=== PATIENT | male | born 1985 | race Caucasian/White ===

== ENCOUNTER 2017-06-12 11:42 | Emergency (ER) | payer SELFPAY ==
[2017-06-12 11:53] VITALS: BP 119/81; PULSE 109; RESP 17; TEMP 99.8; O2SAT 98
--- NOTE | 2017-06-12 13:14 | C.PDOC ---
History Of Present Illness Dax Andrade is a 31 year old female who presents to the emergency department complaining of fever, chills, sore throat, and minimal cough for the last 3 days. Patient reports has the same symptoms, and he flew from [place] yesterday. Patient states no other sick contacts. He is taking Motrin 400mg occasionally with improvement. No further medical complaints. PMD: None provided. Time Seen by Provider: 06/12/17 13:01 Chief Complaint (Nursing): Flu-like Symptoms History Per: Patient History/Exam Limitations: no limitations Onset/Duration Of Symptoms: Days (x3) Associated Symptoms: Fever, Chills, Sore Throat, Cough (minimal) Recent travel outside of the [place]: Yes (flew from [place] yesterday) Past Medical History Reviewed: Historical Data, Nursing Documentation, Vital Signs Vital Signs: Last Vital Signs Temp 99.8 F H 06/12/17 11:49 Pulse 109 H 06/12/17 11:49 Resp 17 06/12/17 11:49 BP 119/81 06/12/17 11:49 Pulse Ox 98 06/12/17 13:14 Surgical History: Appendectomy - [facility] Procedures LAPAROSCOP APPENDECTOMY (01/07/14) Family History: States: Unknown Family Hx - Social History Hx Tobacco Use: Yes Hx Alcohol Use: No Hx Substance Use: No - Immunization History Hx Tetanus Toxoid Vaccination: No Hx Influenza Vaccination: No Hx Pneumococcal Vaccination: No Review Of Systems Except As Marked, All Systems Reviewed And Found Negative. Constitutional: Positive for: Fever, Chills ENT: Positive for: Throat Pain Respiratory: Positive for: Cough Physical Exam - Physical Exam Appears: Well, No Acute Distress (No apparent distress) Skin: Normal Color, Warm, Dry Eye(s): bilateral: Normal Inspection Neck: Normal, Normal ROM, Supple Cardiovascular: Rhythm Regular, No Murmur Respiratory: Normal Breath Sounds Gastrointestinal/Abdominal: Normal Exam, Bowel Sounds, Soft, No Tenderness Extremity: Normal ROM, No Pedal Edema, No Deformity Neurological/Psych: Normal Speech, Normal Motor, Normal Sensation ED Course And Treatment O2 Sat by Pulse Oximetry: 98 (RA) Pulse Ox Interpretation: Normal Medical Decision Making Medical Decision Making: viral syndrome, normal exam flew in from [place] yesterday, LOW susp of MERS opt f'/u PRN Disposition Doctor Will See Patient In The: Office Counseled Patient/Family Regarding: Studies Performed, Diagnosis - Disposition Referrals: [facility] [Outside] [facility] [Outside] Leo Azar MD [Staff Provider] - Disposition: HOME/ ROUTINE Disposition Time: 13:14 Condition: GOOD Additional Instructions: alternate Motrin 600 mg every 6 hours and Tylenol 1000 mg every 6 hours Drink plenty of fluids This will last 7-11 days No work unitil fever-free for 24 hours- highly contagious. Instructions: Viral Syndrome (ED) Forms: [facility] (Estonian) - Clinical Impression Clinical Impression: Viral syndrome - Scribe Statement The provider has reviewed the documentation as recorded by the Madelyn Orellana Provider Attestation: All medical record entries made by the Jakeibalbin were at my direction and personally dictated by me. I have reviewed the chart and agree that the record accurately reflects my personal performance of the history, physical exam, medical decision making, and the department course for this patient. I have also personally directed, reviewed, and agree with the discharge instructions and disposition.
== END 2017-06-12 13:18 | disposition home or self-care (01) ==
LOC: C.ER 11:42
DX: B34.9 Viral infection, unspecified (principal)

== ENCOUNTER 2017-11-14 23:27 | Emergency (ER) | payer SELFPAY ==
[2017-11-14 23:34] VITALS: O2SAT 98
--- NOTE | 2017-11-14 23:49 | C.PDOC ---
History Of Present Illness Patient seen tonite due to onset of dizzineess and vertigo with vomiting. Time Seen by Provider: 11/14/17 23:49 Chief Complaint (Nursing): Dizziness/Lightheaded History Per: Patient History/Exam Limitations: no limitations Onset/Duration Of Symptoms: Hrs Current Symptoms Are (Timing): Still Present Activity At Onset Of Symptoms: Sitting, Change In Head Position Associated Symptoms Preceding Syncopal Episode: No Predromal Symptoms (Sudden Onset), Vertigo Past Medical History Vital Signs: Last Vital Signs Temp 98 F 11/14/17 23:32 Pulse 88 11/14/17 23:32 Resp 20 11/14/17 23:32 BP 136/81 11/14/17 23:32 Pulse Ox 98 11/14/17 23:55 - Medical History PMH: No Chronic Diseases Surgical History: Appendectomy - [facility] Procedures LAPAROSCOP APPENDECTOMY (01/07/14) Family History: States: Unknown Family Hx - Social History Hx Tobacco Use: Yes Hx Alcohol Use: No Hx Substance Use: No - Immunization History Hx Tetanus Toxoid Vaccination: No Hx Influenza Vaccination: No Hx Pneumococcal Vaccination: No Review Of Systems Constitutional: Negative for: Fever, Chills, Sweats Eyes: Negative for: Pain, Vision Change, Conjunctivae Inflammation ENT: Negative for: Ear Pain, Ear Discharge, Nose Pain, Nose Discharge Cardiovascular: Negative for: Chest Pain, Palpitations, Orthopnea, Paroxysmal Noc. Dyspnea Respiratory: Negative for: Cough, Shortness of Breath, Hemoptysis Gastrointestinal: Positive for: Nausea, Vomiting. Negative for: Abdominal Pain , Diarrhea, Constipation, Melena, Hematochezia, Hematemesis Genitourinary: Negative for: Dysuria, Frequency, Incontinence Musculoskeletal: Negative for: Neck Pain, Shoulder Pain, Arm Pain Skin: Negative for: Rash, Lesions Neurological: Negative for: Weakness, Numbness, Incoordination, Change in Speech , Confusion, Seizures, Altered Mental Status, Headache Psych: Negative for: Anxiety, Depression, Psychosis, Suicidal ideation, Withdrawal Physical Exam - Physical Exam Appears: Non-toxic, No Acute Distress Skin: Normal Color, Warm, Dry Head: Atraumatic Eye(s): bilateral: Normal Inspection, PERRL, Other (presewnce of nystagmus to the right -laterally) Nose: Normal Oral Mucosa: Moist Tongue: Normal Appearing Lips: Normal Appearing Throat: Normal Neck: Normal Chest: Symmetrical, No Deformity, No Tenderness Cardiovascular: Rhythm Regular Respiratory: Normal Breath Sounds Gastrointestinal/Abdominal: Normal Exam, Soft, No Tenderness, No Organomegaly, No Distention, No Guarding Extremity: Normal ROM Neurological/Psych: Oriented x3, Normal Speech, Normal Cognition, Normal Cranial Nerves, Normal Motor, Normal Sensation, Normal Reflexes Gait: Steady Other Neurological Findings: No Facial Palsy, No Tongue Deviation ED Course And Treatment - Laboratory Results Result Diagrams: 11/15/17 00:09 11/15/17 00:09 O2 Sat by Pulse Oximetry: 98 Disposition Counseled Patient/Family Regarding: Diagnosis - Disposition Referrals: [facility] [Outside] Disposition: HOME/ ROUTINE Disposition Time: 01:47 Condition: STABLE Prescriptions: Meclizine [Antivert] 12.5 mg PO Q6 #20 tab Instructions: Labyrinthitis, Vertigo (a Type of Dizziness) (DC) Forms: [facility] (Latvian) - POA Present On Arrival: None - Clinical Impression Clinical Impression: Vertigo
[2017-11-14] MEDS ORDERED: Sodium Chloride 0.9% 1,000 ML IV ONE (23:56)
[2017-11-15] MEDS ORDERED: Sodium Chloride 0.9% 1,000 ML ONE (00:01)
[2017-11-15 00:12] LABS: BASO % 0.4 % (0.0-2.0); EOS # 0.2 K/uL (0.0-0.7); EOS % 2.1 % (0.0-4.0); HEMOGLOBIN 16.1 g/dL (12.0-18.0); LYMPH # 2.2 K/uL (1.0-4.3); LYMPH % 20.3 % (20.0-40.0); MEAN CELL VOLUME 83.1 fL (80.0-94.0); MEAN CORPUSCULAR HEMOGLOBIN 29.1 pg (27.0-31.0); MEAN PLATELET VOLUME 9.9 fL (7.2-11.7); MONO # 0.5 K/uL (0.0-0.8); MONO % 4.3 % (0.0-10.0); NEUT # 7.8 K/uL (1.8-7.0); NEUT % 72.9 % (50.0-75.0); NRBC % 0.1 % (0.0-2.0); RBC 5.54 Mil/uL (4.40-5.90); RED CELL DISTRIBUTION WIDTH 13.9 % (11.5-14.5); WHITE BLOOD COUNT 10.7 K/uL (4.8-10.8)
[2017-11-15 00:25] LABS: ALB/GLOB RATIO 1.4 (1.0-2.1); ALT/SGPT 27 U/L (21-72); AST/SGOT 22 U/L (17-59); BLOOD UREA NITROGEN 14 mg/dL (9-20); CALCIUM 9.3 mg/dl (8.6-10.4); GFR AFRICAN-AMERICAN > 60; GFR NON-AFRICAN AMERICAN > 60
--- NOTE | 2017-11-15 00:40 | CT ---
EXAM: CT Head Without Intravenous Contrast CLINICAL HISTORY: 31 years old, male; Pain; Headache; Headache not specified TECHNIQUE: Axial computed tomography images of the head/brain without intravenous contrast. All CT scans at this facility use one or more dose reduction techniques, viz.: automated exposure control; ma/kV adjustment per patient size (including targeted exams where dose is matched to indication; i.e. head); or iterative reconstruction technique. Coronal and sagittal reformatted images were created and reviewed. COMPARISON: No relevant prior studies available. FINDINGS: Brain: No intracranial hemorrhage. No mass. No definite edema. Ventricles: No hydrocephalus. Bones/joints: No acute fracture. Soft tissues: Unremarkable. Sinuses: No acute sinusitis. Mastoid air cells: No mastoid effusion. Orbits: Unremarkable as visualized. IMPRESSION: 1. No definite acute intracranial abnormality.
[2017-11-15 03:02] VITALS: BP 125/78; PULSE 84; RESP 22; TEMP 98.9
--- NOTE | 2017-11-16 12:40 | CARD ---
APPROVED REPORT EKG Measurement Heart [id number] <Conclusion> Normal sinus rhythm Normal ECG
== END 2017-11-15 03:07 | disposition home or self-care (01) ==
LOC: C.ER 23:27
DX: R42 Dizziness and giddiness (principal); Z72.0 Tobacco use
CPT/HCPCS: 70450; 80053; 85025; 93005; 96374; 99285; J2060; J7040